=== PATIENT | male | born 1970 | race Caucasian/White ===

== ENCOUNTER 2018-11-25 09:53 | Day surgery (SDC) | payer MEDICAID ==
[2018-11-25] MEDS ORDERED: PROPOFOL 10 MG/ML VIAL IV ONE (09:54)
[2018-11-25] MEDS ORDERED: LIDOCAINE 2% MDV (20MG/ML) 20ML VIAL IV ONE (09:54)
[2018-11-25] MEDS ORDERED: MIDAZOLAM HCL 2MG/2ML VIAL IV ONE (09:54)
--- NOTE | 2018-11-26 08:50 | Operative Note ---
OPERATION: COLONOSCOPY. PREOPERATIVE DIAGNOSIS: Family history of colon cancer in brother under age 60. POSTOPERATIVE DIAGNOSIS: Internal hemorrhoids, otherwise normal exam. PREPARATION QUALITY: Good. ESTIMATED BLOOD LOSS: None. SPECIMENS: None. COMPLICATIONS: None apparent. PROCEDURE: After informed consent was obtained from the patient, he was placed in the left lateral decubitus position in the endoscopy suite, sedated and monitored by the department of anesthesia. Digital rectal exam was unremarkable. A well-lubricated [id number] colonoscope was inserted into the rectum and advanced to the cecum. Preparation quality was good. The cecum and cecal bulb were inspected several times. A second intubation of the cecum was obtained at least once if not twice. The ileocecal valve was unremarkable as were the appendiceal orifice, ascending colon, transverse colon, descending colon, sigmoid colon, and rectum. No polyps, mass lesions, or inflammation was seen. J-turn views of the anorectum revealed internal hemorrhoids. No other abnormalities, however. The endoscope was straightened, the rectal ampulla deflated, and the endoscope was removed. RECOMMENDATIONS: The patient should resume his medications and diet. Based on his family history, I would recommend repeat exam in 5 years. As always, thank you for allowing me to participate in the healthcare of your patients. CC: EDNA Payne
== END 2018-11-25 11:55 | disposition home or self-care (01) ==
LOC: HOP 09:53
PROVIDERS: ATTEND Internal Medicine Gastroenterology
DX: Z12.11 Encounter for screening for malignant neoplasm of colon (principal); Z80.0 Family history of malignant neoplasm of digestive organs; I10 Essential (primary) hypertension
CPT/HCPCS: 00812; G0105